=== PATIENT | male | born 1975 | race Caucasian/White ===

== ENCOUNTER → 2019-05-02 12:21 | Outpatient (BNVA) | payer MEDICAID, SELFPAY | PROVIDERS: PCP Nurse Practitioner Family; Visit Provider Psychiatry & Neurology Psychiatry | DX: F43.12 Post-traumatic stress disorder, chronic (principal); F33.2 Major depressive disorder, recurrent severe without psychotic features; F12.21 Cannabis dependence, in remission; F10.21 Alcohol dependence, in remission | CPT/HCPCS: 99213 ==

== ENCOUNTER → 2019-05-10 11:40 | Outpatient (BNVA) | payer MEDICAID, SELFPAY | PROVIDERS: PCP Nurse Practitioner Family; Visit Provider Social Worker Clinical | DX: F31.5 Bipolar disorder, current episode depressed, severe, with psychotic features (principal) | CPT/HCPCS: 90834 ==

== ENCOUNTER → 2019-06-13 12:46 | Outpatient (BNVA) | payer MEDICAID, SELFPAY | PROVIDERS: PCP Nurse Practitioner Family; Visit Provider Social Worker Clinical | DX: F63.81 Intermittent explosive disorder (principal) | CPT/HCPCS: 90834 ==

== ENCOUNTER → 2019-06-29 15:19 | Outpatient (BNVA) | payer MEDICAID, SELFPAY | PROVIDERS: PCP Nurse Practitioner Family; Visit Provider Social Worker Clinical | DX: F63.81 Intermittent explosive disorder (principal) | CPT/HCPCS: 90832 ==

== ENCOUNTER → 2019-07-14 08:36 | Outpatient (BNVA) | payer MEDICAID, SELFPAY | PROVIDERS: PCP Nurse Practitioner Family; Visit Provider Social Worker Clinical | DX: F63.81 Intermittent explosive disorder (principal) | CPT/HCPCS: 90832 ==

== ENCOUNTER → 2019-08-04 08:15 | Outpatient (BNVA) | payer MEDICAID, SELFPAY | PROVIDERS: PCP Nurse Practitioner Family; Visit Provider Social Worker Clinical | DX: F63.81 Intermittent explosive disorder (principal) | CPT/HCPCS: 90834 ==

== ENCOUNTER → 2019-08-23 08:20 | Outpatient (BNVA) | payer MEDICAID, SELFPAY | PROVIDERS: PCP Nurse Practitioner Family; Visit Provider Psychiatry & Neurology Psychiatry | DX: F43.12 Post-traumatic stress disorder, chronic (principal); F33.2 Major depressive disorder, recurrent severe without psychotic features; F41.1 Generalized anxiety disorder; F10.20 Alcohol dependence, uncomplicated; F12.10 Cannabis abuse, uncomplicated; F17.200 Nicotine dependence, unspecified, uncomplicated | CPT/HCPCS: 99214 ==

== ENCOUNTER → 2019-09-13 08:06 | Outpatient (BNVA) | payer MEDICAID, SELFPAY | PROVIDERS: PCP Nurse Practitioner Family; Visit Provider Social Worker Clinical | DX: F41.1 Generalized anxiety disorder (principal); F33.2 Major depressive disorder, recurrent severe without psychotic features; F43.12 Post-traumatic stress disorder, chronic; F10.20 Alcohol dependence, uncomplicated | CPT/HCPCS: 90834 ==

== ENCOUNTER → 2019-09-29 08:08 | Outpatient (BNVA) | payer MEDICAID, SELFPAY | PROVIDERS: PCP Nurse Practitioner Family; Visit Provider Social Worker Clinical | DX: F33.2 Major depressive disorder, recurrent severe without psychotic features (principal); F43.12 Post-traumatic stress disorder, chronic; F41.1 Generalized anxiety disorder; F10.20 Alcohol dependence, uncomplicated | CPT/HCPCS: 90832 ==

== ENCOUNTER → 2019-10-25 08:10 | Outpatient (BNVA) | payer MEDICAID, SELFPAY | PROVIDERS: PCP Nurse Practitioner Family; Visit Provider Social Worker Clinical | DX: F33.2 Major depressive disorder, recurrent severe without psychotic features (principal); F43.12 Post-traumatic stress disorder, chronic; F41.1 Generalized anxiety disorder; F10.20 Alcohol dependence, uncomplicated | CPT/HCPCS: 90834 ==

== ENCOUNTER → 2019-11-14 08:17 | Outpatient (BNVA) | payer MEDICAID, SELFPAY | PROVIDERS: PCP Nurse Practitioner Family; Visit Provider Psychiatry & Neurology Psychiatry | DX: F43.12 Post-traumatic stress disorder, chronic (principal); F33.2 Major depressive disorder, recurrent severe without psychotic features; F41.1 Generalized anxiety disorder; F10.20 Alcohol dependence, uncomplicated; F12.10 Cannabis abuse, uncomplicated; F17.200 Nicotine dependence, unspecified, uncomplicated | CPT/HCPCS: 99213 ==

== ENCOUNTER → 2019-11-22 09:42 | Outpatient (BNVA) | payer MEDICAID, SELFPAY | PROVIDERS: PCP Nurse Practitioner Family; Visit Provider Social Worker Clinical | DX: F41.1 Generalized anxiety disorder (principal); F33.2 Major depressive disorder, recurrent severe without psychotic features; F43.12 Post-traumatic stress disorder, chronic; F10.20 Alcohol dependence, uncomplicated | CPT/HCPCS: 90834 ==

== ENCOUNTER → 2019-11-29 13:53 | Outpatient (BNVA) | payer OTHER, SELFPAY | PROVIDERS: PCP Nurse Practitioner Family; Visit Provider Psychiatry & Neurology Psychiatry | DX: F33.2 Major depressive disorder, recurrent severe without psychotic features (principal) | CPT/HCPCS: 80061; 83036 ==

== ENCOUNTER → 2019-12-08 08:33 | Outpatient (BNVA) | payer MEDICAID, SELFPAY ==
[2019-11-30 16:10] VITALS: BP 130/91; BMI 20.9
== END ==
PROVIDERS: PCP Nurse Practitioner Family; Visit Provider Social Worker Clinical
DX: F33.2 Major depressive disorder, recurrent severe without psychotic features (principal); F43.12 Post-traumatic stress disorder, chronic; F41.1 Generalized anxiety disorder
CPT/HCPCS: 90834

== ENCOUNTER → 2019-12-26 09:11 | Outpatient (BNVA) | payer MEDICAID, SELFPAY ==
[2019-11-30 16:10] VITALS: BP 130/91; BMI 20.9
== END ==
PROVIDERS: PCP Nurse Practitioner Family; Visit Provider Social Worker Clinical
DX: F10.20 Alcohol dependence, uncomplicated (principal); F41.1 Generalized anxiety disorder; F33.2 Major depressive disorder, recurrent severe without psychotic features; F43.12 Post-traumatic stress disorder, chronic
CPT/HCPCS: 90834

== ENCOUNTER → 2020-01-09 08:42 | Outpatient (BNVA) | payer MEDICAID, SELFPAY ==
[2019-11-30 16:10] VITALS: BP 130/91; BMI 20.9
== END ==
PROVIDERS: PCP Nurse Practitioner Family; Visit Provider Social Worker Clinical
DX: F41.1 Generalized anxiety disorder (principal); F33.2 Major depressive disorder, recurrent severe without psychotic features; F43.12 Post-traumatic stress disorder, chronic; F10.20 Alcohol dependence, uncomplicated
CPT/HCPCS: 90832

== ENCOUNTER → 2020-01-25 08:20 | Outpatient (BNVA) | payer MEDICAID, SELFPAY ==
[2019-11-30 16:10] VITALS: BP 130/91; BMI 20.9
== END ==
PROVIDERS: PCP Nurse Practitioner Family; Visit Provider Social Worker Clinical
DX: F41.1 Generalized anxiety disorder (principal); F33.2 Major depressive disorder, recurrent severe without psychotic features; F43.12 Post-traumatic stress disorder, chronic; F10.20 Alcohol dependence, uncomplicated
CPT/HCPCS: 90832

== ENCOUNTER → 2020-02-06 08:13 | Outpatient (BNVA) | payer MEDICAID, SELFPAY ==
[2019-11-30 16:10] VITALS: BP 130/91; BMI 20.9
== END ==
PROVIDERS: PCP Nurse Practitioner Family; Visit Provider Psychiatry & Neurology Psychiatry
DX: F43.12 Post-traumatic stress disorder, chronic (principal); F33.2 Major depressive disorder, recurrent severe without psychotic features; F41.1 Generalized anxiety disorder; F10.20 Alcohol dependence, uncomplicated; F12.10 Cannabis abuse, uncomplicated; F17.200 Nicotine dependence, unspecified, uncomplicated
CPT/HCPCS: 99214

== ENCOUNTER → 2020-02-09 07:53 | Outpatient (BNVA) | payer MEDICAID, SELFPAY ==
[2019-11-30 16:10] VITALS: BP 130/91; BMI 20.9
== END ==
PROVIDERS: PCP Nurse Practitioner Family; Visit Provider Social Worker Clinical
DX: F41.1 Generalized anxiety disorder (principal); F33.2 Major depressive disorder, recurrent severe without psychotic features; F43.12 Post-traumatic stress disorder, chronic; F10.20 Alcohol dependence, uncomplicated
CPT/HCPCS: 90834

== ENCOUNTER → 2020-03-06 08:19 | Outpatient (BNVA) | payer MEDICAID, SELFPAY ==
[2019-11-30 16:10] VITALS: BP 130/91; BMI 20.9
== END ==
PROVIDERS: PCP Nurse Practitioner Family; Visit Provider Social Worker Clinical
DX: F10.20 Alcohol dependence, uncomplicated (principal); F41.1 Generalized anxiety disorder; F33.2 Major depressive disorder, recurrent severe without psychotic features; F43.12 Post-traumatic stress disorder, chronic
CPT/HCPCS: 90834

== ENCOUNTER → 2020-04-05 08:17 | Outpatient (BNVA) | payer MEDICAID, SELFPAY ==
[2019-11-30 16:10] VITALS: BP 130/91; BMI 20.9
== END ==
PROVIDERS: PCP Nurse Practitioner Family; Visit Provider Social Worker Clinical
DX: F41.1 Generalized anxiety disorder (principal); F33.2 Major depressive disorder, recurrent severe without psychotic features; F43.12 Post-traumatic stress disorder, chronic; F10.20 Alcohol dependence, uncomplicated
CPT/HCPCS: 90834

== ENCOUNTER → 2020-05-10 08:21 | Outpatient (BNVA) | payer MEDICAID, SELFPAY ==
[2019-11-30 16:10] VITALS: BP 130/91; BMI 20.9
== END ==
PROVIDERS: PCP Nurse Practitioner Family; Visit Provider Psychiatry & Neurology Psychiatry
DX: F41.1 Generalized anxiety disorder (principal); F33.2 Major depressive disorder, recurrent severe without psychotic features; F12.10 Cannabis abuse, uncomplicated; F10.20 Alcohol dependence, uncomplicated; F17.200 Nicotine dependence, unspecified, uncomplicated; F43.12 Post-traumatic stress disorder, chronic
CPT/HCPCS: 99213

== ENCOUNTER → 2020-05-24 07:59 | Outpatient (BNVA) | payer MEDICAID, SELFPAY ==
[2019-11-30 16:10] VITALS: BP 130/91; BMI 20.9
== END ==
PROVIDERS: PCP Nurse Practitioner Family; Visit Provider Social Worker Clinical
DX: F10.20 Alcohol dependence, uncomplicated (principal); F41.1 Generalized anxiety disorder; F33.2 Major depressive disorder, recurrent severe without psychotic features; F43.12 Post-traumatic stress disorder, chronic
CPT/HCPCS: 90834

== ENCOUNTER → 2020-06-28 08:52 | Outpatient (BNVA) | payer MEDICAID, SELFPAY ==
[2019-11-30 16:10] VITALS: BP 130/91; BMI 20.9
== END ==
PROVIDERS: PCP Nurse Practitioner Family; Visit Provider Social Worker Clinical
DX: F10.20 Alcohol dependence, uncomplicated (principal); F43.12 Post-traumatic stress disorder, chronic; F41.1 Generalized anxiety disorder; F33.2 Major depressive disorder, recurrent severe without psychotic features
CPT/HCPCS: 90834

== ENCOUNTER → 2020-07-05 08:34 | Outpatient (BNVA) | payer MEDICAID, OTHER, SELFPAY ==
[2019-11-30 16:10] VITALS: BP 130/91; BMI 20.9
== END ==
PROVIDERS: PCP Nurse Practitioner Family; Visit Provider Psychiatry & Neurology Psychiatry
DX: F33.2 Major depressive disorder, recurrent severe without psychotic features (principal); F41.1 Generalized anxiety disorder; F43.12 Post-traumatic stress disorder, chronic; F10.20 Alcohol dependence, uncomplicated; F12.10 Cannabis abuse, uncomplicated; F17.200 Nicotine dependence, unspecified, uncomplicated
CPT/HCPCS: 99214

== ENCOUNTER → 2020-09-06 13:28 | Outpatient (BNVA) | payer MEDICAID, SELFPAY ==
[2020-08-29 13:25] VITALS: BP 130/91; BMI 20.9
== END ==
PROVIDERS: PCP Nurse Practitioner Family; Visit Provider Nurse Practitioner Family
DX: R41.3 Other amnesia (principal); E78.5 Hyperlipidemia, unspecified; R03.0 Elevated blood-pressure reading, without diagnosis of hypertension; Z79.899 Other long term (current) drug therapy
CPT/HCPCS: 80053; 80061

== ENCOUNTER → 2020-10-16 15:00 | Outpatient (BNVA) | payer OTHER, SELFPAY ==
[2020-08-29 13:25] VITALS: BP 130/91; BMI 20.9
== END ==
PROVIDERS: PCP Nurse Practitioner Family; Visit Provider Psychiatry & Neurology Psychiatry
DX: F41.1 Generalized anxiety disorder (principal); Z79.899 Other long term (current) drug therapy
CPT/HCPCS: 83036

== ENCOUNTER → 2020-10-25 12:00 | Outpatient (BNVA) | payer MEDICAID, SELFPAY ==
[2020-08-29 13:25] VITALS: BP 130/91; BMI 20.9
== END ==
PROVIDERS: PCP Nurse Practitioner Family; Visit Provider Psychiatry & Neurology Psychiatry
DX: F33.2 Major depressive disorder, recurrent severe without psychotic features (principal); F41.1 Generalized anxiety disorder; F43.12 Post-traumatic stress disorder, chronic; F10.20 Alcohol dependence, uncomplicated; F12.10 Cannabis abuse, uncomplicated; F17.200 Nicotine dependence, unspecified, uncomplicated
CPT/HCPCS: 99214

== ENCOUNTER → 2020-12-13 15:10 | Outpatient (BNVA) | payer MEDICAID, SELFPAY ==
[2020-11-05 11:19] VITALS: BP 162/94; BMI 23.3
== END ==
PROVIDERS: PCP Nurse Practitioner Family; Visit Provider Social Worker Clinical
DX: F33.2 Major depressive disorder, recurrent severe without psychotic features (principal); F10.20 Alcohol dependence, uncomplicated; F12.10 Cannabis abuse, uncomplicated; F17.200 Nicotine dependence, unspecified, uncomplicated; F41.1 Generalized anxiety disorder; F43.12 Post-traumatic stress disorder, chronic
CPT/HCPCS: 90832

== ENCOUNTER → 2021-01-07 14:18 | Outpatient (BNVA) | payer MEDICAID, SELFPAY ==
[2020-11-05 11:19] VITALS: BP 162/94; BMI 23.3
== END ==
PROVIDERS: PCP Nurse Practitioner Family; Referring Provider Nurse Practitioner Family; Visit Provider Specialist
DX: R56.9 Unspecified convulsions (principal); F10.20 Alcohol dependence, uncomplicated; F33.2 Major depressive disorder, recurrent severe without psychotic features; F41.1 Generalized anxiety disorder; G47.52 REM sleep behavior disorder; F17.210 Nicotine dependence, cigarettes, uncomplicated
CPT/HCPCS: 99214; 99215

== ENCOUNTER → 2021-01-16 08:06 | Outpatient (BNVA) | payer MEDICAID, SELFPAY ==
[2020-11-05 11:19] VITALS: BP 162/94; BMI 23.3
== END ==
PROVIDERS: PCP Nurse Practitioner Family; Visit Provider Psychiatry & Neurology Psychiatry
DX: F41.1 Generalized anxiety disorder; F43.12 Post-traumatic stress disorder, chronic; F10.20 Alcohol dependence, uncomplicated; F12.10 Cannabis abuse, uncomplicated; F17.200 Nicotine dependence, unspecified, uncomplicated; F17.210 Nicotine dependence, cigarettes, uncomplicated; F12.920 Cannabis use, unspecified with intoxication, uncomplicated; F33.2 Major depressive disorder, recurrent severe without psychotic features
CPT/HCPCS: 99213

== ENCOUNTER → 2021-02-18 08:45 | Outpatient (BNVA) | payer MEDICAID, SELFPAY ==
[2020-11-05 11:19] VITALS: BP 162/94; BMI 23.3
== END ==
PROVIDERS: PCP Nurse Practitioner Family; Referring Provider Specialist; Visit Provider Specialist
DX: R56.9 Unspecified convulsions (principal)
CPT/HCPCS: 95816

== ENCOUNTER 2021-02-18 11:08 | Outpatient (CLI) | payer MEDICAID, SELFPAY ==
[2020-11-05 11:19] VITALS: BP 162/94; BMI 23.3
--- NOTE | 2021-02-18 11:16 | XR_ITS ---
WS: [id number] RIGHT HAND: 3 VIEW(S) TECHNIQUE: PA, oblique and lateral. HISTORY: M79.641 - Pain in right hand COMPARISON: None available. Healing nondisplaced fracture through the proximal fifth metacarpal diaphysis. Mild narrowing of the interphalangeal joint spaces. No soft tissue edema. XR/XR hand RT min 3V* [id number] IMPRESSION: Healing nondisplaced fracture proximal fifth metacarpal diaphysis.
[2021-02-18 12:30] LABS: Alanine Aminotransferase 11 U/L (0-41); Albumin Level 4.4 g/dL (3.5-5.2); Alkaline Phosphatase 93 IU/L (40-130); Anion Gap 14.6 (5-19); Aspartate Amino Transferase 19 U/L (0-40); Blood Urea Nitrogen 7 mg/dL (6-20); Carbon Dioxide 28 mmol/L (22-29); Chloride 103 mmol/L (98-107); Chol HDL Ratio 5.42 mg/dL (1.0-5.00); Cholesterol 195 mg/dL (0-200); Globulin 3.3 g/dL (1.3-4.6); Glomerular Filtration Rate 90.4 mL/min (90-130); Glucose 75 mg/dL (65-115); HDL Cholesterol 36 mg/dL (60-100); LDL Cholesterol Calculated 134 mg/dL (50-129); LDL HDL Ratio 3.72 RATIO (0.00-3.22); Magnesium 2.2 mg/dL (1.7-2.3); Osmolality Calculated 289 mOsm/kg (285-295); Potassium 4.6 mmol/L (3.5-5.1); Sodium 141 mmol/L (136-145); Total Bilirubin 0.3 mg/dL (0.15-1.2); Total Protein 7.7 g/dL (6.6-8.7); Triglycerides 124 mg/dL (0-150)
[2021-02-18 12:42] LABS: Vitamin B12 534 pg/mL (232-1245)
== END 2021-02-18 11:09 | disposition home or self-care (01) ==
LOC: RAD 11:13
PROVIDERS: PCP Nurse Practitioner Family; Visit Provider Nurse Practitioner Family
DX: R56.9 Unspecified convulsions (principal); E78.5 Hyperlipidemia, unspecified; F10.20 Alcohol dependence, uncomplicated; S62.396A Other fracture of fifth metacarpal bone, right hand, initial encounter for closed fracture; X58.XXXA Exposure to other specified factors, initial encounter
CPT/HCPCS: 73130; 80053; 80061; 80164; 82607; 83735

== ENCOUNTER → 2021-04-10 07:50 | Outpatient (BNVA) | payer MEDICAID, OTHER, SELFPAY ==
[2020-11-05 11:19] VITALS: BP 162/94; BMI 23.3
== END ==
PROVIDERS: PCP Nurse Practitioner Family; Visit Provider Psychiatry & Neurology Psychiatry
DX: F33.2 Major depressive disorder, recurrent severe without psychotic features (principal); F41.1 Generalized anxiety disorder; F43.12 Post-traumatic stress disorder, chronic; F10.20 Alcohol dependence, uncomplicated; F12.10 Cannabis abuse, uncomplicated; F17.200 Nicotine dependence, unspecified, uncomplicated; F17.210 Nicotine dependence, cigarettes, uncomplicated; F12.920 Cannabis use, unspecified with intoxication, uncomplicated
CPT/HCPCS: 99214

== ENCOUNTER → 2021-04-23 11:33 | Outpatient (BNVA) | payer MEDICAID, SELFPAY ==
[2020-11-05 11:19] VITALS: BP 162/94; BMI 23.3
== END ==
PROVIDERS: PCP Nurse Practitioner Family; Visit Provider Nurse Practitioner Family
DX: F10.20 Alcohol dependence, uncomplicated (principal); D50.8 Other iron deficiency anemias; R53.83 Other fatigue; Z13.6 Encounter for screening for cardiovascular disorders; Z79.899 Other long term (current) drug therapy
CPT/HCPCS: 36415; 80053; 80061; 81003; 82306; 83036; 84207; 84425; 84439; 84443; 85025

== ENCOUNTER 2021-04-30 13:56 | Outpatient (CLI) | payer MEDICAID, SELFPAY ==
[2020-11-05 11:19] VITALS: BP 162/94; BMI 23.3
--- NOTE | 2021-04-30 15:11 | XR_ITS ---
WS: [id number] XR thoracic spine 3V* [id number] REASON FOR EXAM: M54.6 - Pain in thoracic spine FINDINGS: There are compression deformities of the T9, T5, and T4 vertebral bodies. Based on previous CT of 201 and 2010 of the thoracic spine these appear to be chronic abnormalities. No other significant vertebral body abnormality is identified. The intervertebral disc spaces are relatively well preserved. XR/XR thoracic spine 3V* [id number] IMPRESSION: Stable abnormal thoracic spine.
--- NOTE | 2021-04-30 15:11 | XR_ITS ---
WS: [id number] [place] [id number] REASON FOR EXAM: M25.561 - Pain in right knee FINDINGS: No fracture. AP standing view of both knees only submitted for review. Mild narrowing of the medial and lateral knee joint spaces. More significant medially. Mild subchondral sclerosis in the medial and lateral tibial plateaus. No significant osteophyte forma tion. XR/[place] [id number] IMPRESSION: Limited examination. Mild changes of osteoarthritis as above.
== END 2021-04-30 13:57 | disposition home or self-care (01) ==
LOC: RAD 13:59
PROVIDERS: PCP Nurse Practitioner Family; Visit Provider Nurse Practitioner Family
DX: M25.561 Pain in right knee (principal); M25.562 Pain in left knee; G89.29 Other chronic pain; M54.6 Pain in thoracic spine
CPT/HCPCS: 72072; 73565

== ENCOUNTER → 2021-05-13 09:08 | Outpatient (BNVA) | payer MEDICAID, OTHER, SELFPAY ==
[2020-11-05 11:19] VITALS: BP 162/94; BMI 23.3
== END ==
PROVIDERS: PCP Nurse Practitioner Family; Visit Provider Social Worker Clinical
DX: F33.2 Major depressive disorder, recurrent severe without psychotic features (principal); F10.20 Alcohol dependence, uncomplicated; F12.10 Cannabis abuse, uncomplicated; F17.200 Nicotine dependence, unspecified, uncomplicated; F41.1 Generalized anxiety disorder; F43.12 Post-traumatic stress disorder, chronic
CPT/HCPCS: 90834

== ENCOUNTER → 2021-05-20 13:09 | Outpatient (BNVA) | payer MEDICAID, SELFPAY ==
[2020-11-05 11:19] VITALS: BP 162/94; BMI 23.3
== END ==
PROVIDERS: PCP Nurse Practitioner Family; Visit Provider Specialist
DX: G40.909 Epilepsy, unspecified, not intractable, without status epilepticus (principal); G47.52 REM sleep behavior disorder; G40.309 Generalized idiopathic epilepsy and epileptic syndromes, not intractable, without status epilepticus; F10.20 Alcohol dependence, uncomplicated; F17.210 Nicotine dependence, cigarettes, uncomplicated
CPT/HCPCS: 99214

== ENCOUNTER → 2021-05-27 11:42 | Outpatient (BNVA) | payer MEDICAID, SELFPAY ==
[2020-11-05 11:19] VITALS: BP 162/94; BMI 23.3
== END ==
PROVIDERS: PCP Nurse Practitioner Family; Visit Provider Specialist
DX: G40.309 Generalized idiopathic epilepsy and epileptic syndromes, not intractable, without status epilepticus (principal); D64.9 Anemia, unspecified; R53.83 Other fatigue
CPT/HCPCS: 80053; 80164; 85025

== ENCOUNTER → 2021-06-03 08:18 | Outpatient (BNVA) | payer MEDICAID, OTHER, SELFPAY ==
[2020-11-05 11:19] VITALS: BP 162/94; BMI 23.3
== END ==
PROVIDERS: PCP Nurse Practitioner Family; Visit Provider Social Worker Clinical
DX: F33.2 Major depressive disorder, recurrent severe without psychotic features (principal); F41.1 Generalized anxiety disorder; F43.12 Post-traumatic stress disorder, chronic; F10.20 Alcohol dependence, uncomplicated; F12.10 Cannabis abuse, uncomplicated; F17.200 Nicotine dependence, unspecified, uncomplicated
CPT/HCPCS: 90834

== ENCOUNTER → 2021-07-02 15:08 | Outpatient (BNVA) | payer MEDICAID, SELFPAY ==
[2020-11-05 11:19] VITALS: BP 162/94; BMI 23.3
== END ==
PROVIDERS: PCP Nurse Practitioner Family; Referring Provider Nurse Practitioner Family; Visit Provider Orthopaedic Surgery
DX: S62.396A Other fracture of fifth metacarpal bone, right hand, initial encounter for closed fracture (principal); X58.XXXA Exposure to other specified factors, initial encounter; M79.641 Pain in right hand
CPT/HCPCS: 73130

== ENCOUNTER → 2021-07-03 14:52 | Outpatient (BNVA) | payer MEDICAID, OTHER, SELFPAY ==
[2020-11-05 11:19] VITALS: BP 162/94; BMI 23.3
== END ==
PROVIDERS: PCP Nurse Practitioner Family; Visit Provider Psychiatry & Neurology Psychiatry
DX: F33.2 Major depressive disorder, recurrent severe without psychotic features (principal); F41.1 Generalized anxiety disorder; F43.12 Post-traumatic stress disorder, chronic; F10.20 Alcohol dependence, uncomplicated; F12.10 Cannabis abuse, uncomplicated; F17.200 Nicotine dependence, unspecified, uncomplicated; F17.210 Nicotine dependence, cigarettes, uncomplicated
CPT/HCPCS: 99213

== ENCOUNTER → 2021-07-04 08:18 | Outpatient (BNVA) | payer MEDICAID, OTHER, SELFPAY ==
[2020-11-05 11:19] VITALS: BP 162/94; BMI 23.3
== END ==
PROVIDERS: PCP Nurse Practitioner Family; Visit Provider Social Worker Clinical
DX: F33.2 Major depressive disorder, recurrent severe without psychotic features (principal); F41.1 Generalized anxiety disorder; F43.12 Post-traumatic stress disorder, chronic; F10.20 Alcohol dependence, uncomplicated; F12.10 Cannabis abuse, uncomplicated
CPT/HCPCS: 90834

== ENCOUNTER → 2021-07-17 07:40 | Outpatient (BNVA) | payer MEDICAID, SELFPAY ==
[2020-11-05 11:19] VITALS: BP 162/94; BMI 23.3
== END ==
PROVIDERS: PCP Nurse Practitioner Family; Visit Provider Social Worker Clinical
DX: F33.2 Major depressive disorder, recurrent severe without psychotic features (principal); F10.20 Alcohol dependence, uncomplicated; F12.10 Cannabis abuse, uncomplicated; F17.200 Nicotine dependence, unspecified, uncomplicated; F41.1 Generalized anxiety disorder; F43.12 Post-traumatic stress disorder, chronic
CPT/HCPCS: 90834

== ENCOUNTER → 2021-08-15 07:26 | Outpatient (BNVA) | payer MEDICAID, SELFPAY ==
[2020-11-05 11:19] VITALS: BP 162/94; BMI 23.3
== END ==
PROVIDERS: PCP Nurse Practitioner Family; Visit Provider Social Worker Clinical
DX: F33.2 Major depressive disorder, recurrent severe without psychotic features (principal); F41.1 Generalized anxiety disorder; F43.12 Post-traumatic stress disorder, chronic; F10.20 Alcohol dependence, uncomplicated; F12.10 Cannabis abuse, uncomplicated
CPT/HCPCS: 90834

== ENCOUNTER → 2021-09-25 07:08 | Outpatient (BNVA) | payer MEDICAID, SELFPAY ==
[2020-11-05 11:19] VITALS: BP 162/94; BMI 23.3
== END ==
PROVIDERS: PCP Nurse Practitioner Family; Visit Provider Psychiatry & Neurology Psychiatry
DX: F33.2 Major depressive disorder, recurrent severe without psychotic features (principal); F41.1 Generalized anxiety disorder; F43.12 Post-traumatic stress disorder, chronic; F10.20 Alcohol dependence, uncomplicated; F12.10 Cannabis abuse, uncomplicated
CPT/HCPCS: 99213

== ENCOUNTER → 2021-11-11 13:07 | Outpatient (BNVA) | payer MEDICAID, SELFPAY ==
[2020-11-05 11:19] VITALS: BP 162/94; BMI 23.3
== END ==
PROVIDERS: PCP Nurse Practitioner Family; Visit Provider Specialist
DX: G40.309 Generalized idiopathic epilepsy and epileptic syndromes, not intractable, without status epilepticus (principal); G47.52 REM sleep behavior disorder; F10.20 Alcohol dependence, uncomplicated
CPT/HCPCS: 36415; 80164; 99213; 99214